=== PATIENT | female | born 1955 ===

== ENCOUNTER 2021-01-08 13:53 | Outpatient (REF) | payer MEDICARE, MEDICAID, SELFPAY ==
--- NOTE | 2021-01-08 14:23 | MHC.AU.P13 ---
Hearing Instrument Problem Date of Visit: 01/08/21 Right Ear: [employer] Consultant: Phonak Model: FlippsEO M70-R Serial Number: [id number] Repair Warranty: 06/24/23 Loss and Damage Warranty: 06/24/23 Service Plan: 04/10/21 Battery Size: Rechargeable Color: WHITE Operating Room Tech: 0M Type of Mold: SLIM TIP [id number] (07/26/20) Type of Wax Guard: CERUSTOP Left Ear: [employer] Consultant: Phonak Model: FlippsEO M70-R Serial Number: [id number] Repair Warranty: 06/24/23 Loss and Damage Warranty: 06/24/23 Service Plan: 04/10/21 Battery Size: Rechargeable Color: WHITE Operating Room Tech: 0M Type of Mold: SLIM TIP [id number] (07/26/20) Type of Wax Guard: CERUSTOP Follow-Up Summary: Patient reports hearing aids not holding charge all day, left goes in/out, not hearing through both aids on phone. Sending to [employer] for in warranty repair. Recommendations: Recommendations: Hearing instrument follow-up or maintenance as needed. Signature: Provider: LAURA Salamanca-
== END 2021-01-08 13:54 | disposition home or self-care (01) ==
LOC: HO.HAP 13:53
PROVIDERS: Visit Provider Internal Medicine
DX: Z13.89 Encounter for screening for other disorder (principal)

== ENCOUNTER 2021-01-27 11:49 | Outpatient (REF) | payer SELFPAY | END 2021-01-27 11:50 | disposition home or self-care (01) | LOC: HO.HAP 11:49 | PROVIDERS: Visit Provider Internal Medicine | DX: Z13.89 Encounter for screening for other disorder (principal) ==

== ENCOUNTER 2021-04-22 11:17 | Outpatient (REF) | payer MEDICARE, MEDICAID, SELFPAY | END 2021-04-22 11:18 | disposition home or self-care (01) | LOC: HO.HAP 11:17 | PROVIDERS: Visit Provider Internal Medicine | DX: Z46.1 Encounter for fitting and adjustment of hearing aid (principal); H90.3 Sensorineural hearing loss, bilateral | CPT/HCPCS: 92593; V5275 ==

== ENCOUNTER 2021-05-21 13:52 | Outpatient (REF) | payer MEDICARE, MEDICAID, SELFPAY | END 2021-05-21 13:53 | disposition home or self-care (01) | LOC: HO.HAP 13:52 | PROVIDERS: Visit Provider Internal Medicine | DX: Z46.1 Encounter for fitting and adjustment of hearing aid (principal); H90.3 Sensorineural hearing loss, bilateral | CPT/HCPCS: V5264 ==

== ENCOUNTER → 2021-11-26 10:05 | Outpatient (BNVA) | payer MEDICARE, MEDICAID, SELFPAY | PROVIDERS: PCP Internal Medicine; Visit Provider Psychiatry & Neurology Neurology | DX: G20 Parkinson's disease (principal); M48.02 Spinal stenosis, cervical region; F41.9 Anxiety disorder, unspecified; R41.89 Other symptoms and signs involving cognitive functions and awareness; R46.89 Other symptoms and signs involving appearance and behavior | CPT/HCPCS: 99212 ==

== ENCOUNTER → 2022-10-01 10:57 | Outpatient (BNVA) | payer MEDICARE, MEDICAID, SELFPAY | PROVIDERS: PCP Internal Medicine; Visit Provider Psychiatry & Neurology Neurology | DX: G20 Parkinson's disease (principal); F41.9 Anxiety disorder, unspecified; M48.02 Spinal stenosis, cervical region; R41.89 Other symptoms and signs involving cognitive functions and awareness; R46.89 Other symptoms and signs involving appearance and behavior | CPT/HCPCS: 99212 ==

== ENCOUNTER → 2023-02-08 12:11 | Outpatient (BNVA) | payer MEDICARE, MEDICAID, SELFPAY | PROVIDERS: PCP Internal Medicine; Visit Provider Psychiatry & Neurology Neurology | DX: G20 Parkinson's disease (principal); F41.9 Anxiety disorder, unspecified; M48.02 Spinal stenosis, cervical region; R41.89 Other symptoms and signs involving cognitive functions and awareness; R46.89 Other symptoms and signs involving appearance and behavior | CPT/HCPCS: 99212 ==